=== PATIENT | female | born 1945 ===

== ENCOUNTER 2018-01-06 04:58 | Observation (INO) | payer MEDICARE, OTHER ==
[2018-01-06 05:05] VITALS: BMI 36.8
[2018-01-06 05:19] VITALS: TEMP 98.4
--- NOTE | 2018-01-06 05:42 | ED PDOC ---
HPI: Chest Pain Time Seen by Provider: 01/06/18 05:05 Chief Complaint (Nursing): Chest Pain Chief Complaint (Provider): Chest Pain History Per: Patient History/Exam Limitations: no limitations Onset/Duration Of Symptoms: Hrs (prior to arrival) Current Symptoms Are (Timing): Still Present Additional Complaint(s): 72 year old female with history of diabetes, kidney disease presents to the ED complaining of chest pain, onset last night. Patient reports a pressure like chest pain in the center of her chest that makes it hard for her to breath. She denies fever, cough, vomiting or diarrhea. PMd; Dr. Abby Ferreira MD Past Medical History Reviewed: Historical Data, Nursing Documentation, Vital Signs Vital Signs: Last Vital Signs Temp 98.4 F 01/06/18 05:05 Pulse 71 01/06/18 09:00 Resp 18 01/06/18 09:00 BP 157/90 H 01/06/18 09:00 Pulse Ox 99 01/08/18 21:02 - Medical History PMH: Back Problems, Diabetes, Gall Bladder Disease, HTN, Hypercholesterolemia, Hyperlipidemia, Chronic Kidney Disease - Surgical History Surgical History: Cholecystectomy - Family History Family History: States: Unknown Family Hx - Social History Current smoker - smoking cessation education provided: No Alcohol: None Drugs: Denies - Home Medications Home Medications: Ambulatory Orders Medication Instructions Recorded Clopidogrel [Plavix] 75 mg PO DAILY #0 tab 09/11/16 Famotidine [Pepcid] 20 mg PO DAILY #0 tab 09/11/16 Levothyroxine [Synthroid] 88 mcg PO DAILY@0630 #0 tab 09/11/16 Losartan Potassium [Cozaar] 100 mg PO DAILY #0 tablet 09/11/16 Methyldopa [Aldomet] 250 mg PO DAILY #0 tab 09/11/16 Pravastatin Sodium [Pravachol] 20 mg PO DAILY #0 tab 09/11/16 Sevelamer Carbonate [Renvela] 0.8 gm PO DAILY #0 packet 09/11/16 Spironolactone [Aldactone] 25 mg PO DAILY #0 tab 09/11/16 amLODIPine [Norvasc] 10 mg PO DAILY #0 tab 09/11/16 cloNIDine 0.2 mg/24 hr 1 patch TD Q7D@0900 #0 patch 09/11/16 [catapres-TTS2 0.2 mg/24 hr] - Allergies Allergies/Adverse Reactions: Allergies Allergy/AdvReac Type Severity Reaction Status Date / Time No Known Allergies Allergy Verified 01/06/18 05:05 Review of Systems ROS Statement: Except As Marked, All Systems Reviewed And Found Negative Constitutional: Negative for: Fever Cardiovascular: Positive for: Chest Pain (pressure like ) Respiratory: Negative for: Cough Gastrointestinal: Negative for: Vomiting, Diarrhea Physical Exam - Reviewed Nursing Documentation Reviewed: Yes Vital Signs Reviewed: Yes - Physical Exam Appears: Positive for: Non-toxic, No Acute Distress (obese) Head Exam: Positive for: ATRAUMATIC, NORMOCEPHALIC Skin: Positive for: Normal Color, Warm, Dry Eye Exam: Positive for: EOMI, Normal appearance, PERRL Neck: Positive for: Normal, Painless ROM, Supple Cardiovascular/Chest: Positive for: Regular Rate, Rhythm Respiratory: Positive for: CNT, Normal Breath Sounds Extremity: Positive for: Normal ROM. Negative for: Deformity, Swelling (leg) Neurologic/Psych: Positive for: Alert, Oriented - Laboratory Results Result Diagrams: 01/06/18 05:50 01/06/18 05:50 - ECG O2 Sat by Pulse Oximetry: 99 (RA) Pulse Ox Interpretation: Normal Medical Decision Making Medical Decision Making: Time: 05:43 Initial Plan: --BNP --CMP --Troponin I --CBC with differentials --PTT --Prothrombin Time --Chest x-ray --Cardiac Monitoring Scribe Attestation: Documented by Mildred Galvez, acting as a scribe for Tamara Ward MD. Provider Scribe Attestation: All medical record entries made by the Scribe were at my direction and personally dictated by me. I have reviewed the chart and agree that the record accurately reflects my personal performance of the history, physical exam, medical decision making, and the department course for this patient. I have also personally directed, reviewed, and agree with the discharge instructions and disposition. Disposition - Clinical Impression Clinical Impression: Chest pain - Patient ED Disposition Is Patient to be Admitted: Transfer of Care - Disposition Disposition: Transfer of Care Disposition Time: 07:00 Condition: FAIR Patient Signed Over To: Bishop Hart Handoff Comments: pending CBC and results and admission to Dr. Lainez
[2018-01-06 06:17] LABS: BASO # 0.1 K/uL (0.0-0.2); BASO % 1.3 % (0.0-2.0); EOS # 0.3 K/uL (0.0-0.7); EOS % 5.2 % (0.0-4.0); HEMOGLOBIN 11.6 g/dL (12.0-16.0); LYMPH % 29.5 % (20.0-40.0); MEAN CELL VOLUME 94.7 fl (81.0-99.0); MEAN CORPUSCULAR HGB CONC 33.8 g/dL (33.0-37.0); MEAN PLATELET VOLUME 9.7 fl (7.2-11.7); MONO % 14.6 % (0.0-10.0); NEUT # 3.3 K/uL (1.8-7.0); NEUT % 49.4 % (50.0-75.0); NRBC % 0.3 % (0.0-0.0); RBC 3.63 Mil/uL (3.80-5.20); RED CELL DISTRIBUTION WIDTH 14.2 % (11.5-14.5); WHITE BLOOD COUNT 6.7 K/uL (4.8-10.8)
[2018-01-06 06:24] LABS: ALB/GLOB RATIO 1.2 (1.0-2.1); CALCIUM 9.3 mg/dL (8.4-10.2)
[2018-01-06 06:35] LABS: TROPONIN I 0.016 ng/mL (0.00-0.120)
[2018-01-06 06:44] LABS: INR 1.1 (0.9-1.2); PARTIAL THROMBOPLASTIN TIME 31.1 Seconds (25.6-37.1); PROTHROMBIN TIME 12.3 Seconds (9.8-13.1)
--- NOTE | 2018-01-06 07:05 | ED PDOC ---
- Laboratory Results Result Diagrams: 01/06/18 05:50 01/06/18 05:50 - ECG O2 Sat by Pulse Oximetry: 99 (RA) Medical Decision Making Medical Decision Making: Patient signed out to me by Dr. Ward @ 07:00, pending CBC and admission to Dr. Lainez Scribe Attestation: Documented by Jerry Sosa, acting as a scribe for Bishop Hart MD. Provider Scribe Attestation: All medical record entries made by the Scribe were at my direction and personally dictated by me. I have reviewed the chart and agree that the record accurately reflects my personal performance of the history, physical exam, medical decision making, and the department course for this patient. I have also personally directed, reviewed, and agree with the discharge instructions and disposition. Disposition - Clinical Impression Clinical Impression: Chest pain - POA Present On Arrival: None - Disposition Disposition: Hospitalized as Observation Patient Disposition Time: 08:09 Condition: FAIR Forms: [employer] (Sinhala)
--- NOTE | 2018-01-06 09:57 | RAD ---
HISTORY: Chest pain COMPARISON: Comparison made with chest radiograph dated 09/09/2016. FINDINGS: LUNGS: Elevation right hemidiaphragm likely due eventration. There appears to be some mild atelectasis right lung base as well. Mild biapical pleural thickening PLEURA: As above. No pneumothorax apparent. CARDIOVASCULAR: Cardiomegaly. OSSEOUS STRUCTURES: No significant abnormalities. VISUALIZED UPPER ABDOMEN: Normal. OTHER FINDINGS: None. IMPRESSION: Elevation right hemidiaphragm likely due eventration. There appears to be some mild atelectasis right lung base as well. Mild biapical pleural thickening
[2018-01-06 11:30] VITALS: BP 157/90; PULSE 71; RESP 18
[2018-01-08 21:02] VITALS: O2SAT 99
== END 2018-01-06 10:10 | disposition left against medical advice (07) ==
LOC: H.ER 04:58 → H.ERHOLD 08:09
PROVIDERS: ADMIT Internal Medicine; ATTEND Internal Medicine
DX: R07.9 Chest pain, unspecified (principal); E11.22 Type 2 diabetes mellitus with diabetic chronic kidney disease; E78.00 Pure hypercholesterolemia, unspecified; E78.5 Hyperlipidemia, unspecified; I12.9 Hypertensive chronic kidney disease with stage 1 through stage 4 chronic kidney disease, or unspecified chronic kidney disease; N18.9 Chronic kidney disease, unspecified
CPT/HCPCS: 71045; 80053; 83880; 84484; 85025; 85610; 85730; 99282; G0378